=== PATIENT | female | born 1985 | race Two or more races ===

== ENCOUNTER 2021-05-30 14:10 | Emergency (ER) | payer BC, MEDICAID ==
[~2021-05-30] VITALS: Ht 160 cm; Wt 79.4 kg
[~2021-05-30 14:10] MED LIST: PRENTAB40 PO
[2021-05-30] MEDS ORDERED: cefTRIAXone SOD 1,000 MG VL IM ONE (16:00)
[2021-05-30 16:36] VITALS: BP 117/65
== END 2021-05-30 16:02 | disposition home or self-care (01) ==
LOC: ER 14:10
DX: U07.1 COVID-19 (principal); J12.82 Pneumonia due to coronavirus disease 2019
CPT/HCPCS: 36415; 71045; 87426; J0696

== ENCOUNTER 2022-01-02 14:41 | Emergency (ER) | payer BC ==
[~2022-01-02] VITALS: Ht 160 cm; Wt 81.6 kg
[2022-01-02 14:47] VITALS: BP 131/53
[2022-01-02 17:17] LABS: Basophils # (auto) 0.1 10 ^3/uL (0-0.2); Eosinophils # (auto) 0.2 10 ^3/uL (0-0.8); Hemoglobin 7.2 g/dL (12.2-16.2)
[2022-01-02 17:19] LABS: Basophils % (auto) 0.9 % (0.0-2.0); Eosinophils % (auto) 2.2 % (0.0-7.0); Hematocrit 24.2 % (36.0-46.0); Lymphocytes # (auto) 2.4 10 ^3/uL (0.4-5.4); Mean Corpuscular Hemoglobin 16.1 pg (28.0-32.0); Mean Corpuscular Hgb Conc. 29.6 g/dL (32.0-36.0); Mean Corpuscular Volume 54.3 fL (80.0-100.0); Monocytes # (auto) 0.6 10 ^3/uL (0-1.3); Monocytes % (auto) 6.3 % (0.0-12.0); Neutrophils % (auto) 64.6 % (37.0-80.0); Red Blood Cells 4.45 10^6/uL (4.0-5.20); Red Cell Distribution Width 21.6 % (11.8-14.3); White Blood Cell 9.2 10^3/uL (4.4-10.8)
[2022-01-02 17:29] LABS: Potassium 3.4 mmol/L (3.5-5.1)
[2022-01-02 17:32] LABS: Albumin 3.4 g/dL (3.4-5.0); Calcium 8.9 mg/dL (8.5-10.1)
[2022-01-02 17:36] LABS: Bilirubin, Total 0.3 mg/dL (0.2-1.0); Total Protein 7.7 g/dL (6.4-8.2)
[2022-01-02] MEDS ORDERED: HYDR-4902 PO (18:25)
== END 2022-01-02 21:38 | disposition home or self-care (01) ==
LOC: ER 14:41
DX: R10.2 Pelvic and perineal pain (principal); D21.9 Benign neoplasm of connective and other soft tissue, unspecified
CPT/HCPCS: 36415; 74176; 80053; 82150; 83690; 85025